=== PATIENT | male | born 1970 | race Caucasian/White ===

== ENCOUNTER 2025-01-03 16:15 | Inpatient (IN) | payer MEDICAID ==
[~2025-01-03] VITALS: Ht 167.6 cm; Wt 86.2 kg
[2025-01-03 16:18] VITALS: O2SAT 97
[2025-01-03] MEDS ORDERED: METF-1149 MT (16:29)
[2025-01-03 16:43] LABS: BG DEOXYHEMOGLOBIN 12.9 % (0.0-5.0)
[2025-01-03] MEDS: SODIUM CHLORIDE 0.9% 1,000 ML IV ONE (17:18)
[2025-01-03 17:20] LABS: HEMATOCRIT. 30.0 % (42.0-52.0); HEMOGLOBIN. 9.6 g/dL (14.0-18.0); MEAN PLATELET VOLUME 9.0 fl (7.4-10.4); PLATELET 244 x1000/uL (130-400); RED BLOOD CELL COUNT 3.34 mill/uL (4.7-6.1); RED CELL DISTRIBUTION WIDTH 13.1 % (11.6-14.6)
[2025-01-03 17:37] LABS: CREATININE 1.3 mg/dL (0.6-1.3); UREA NITROGEN BLOOD 28 mg/dL (9-23)
[2025-01-03 17:39] LABS: ASPARTATE AMINOTRANSFERASE 21 IU/L (<34); BILIRUBIN DIRECT 0.2 mg/dL (<=3.0); BILIRUBIN TOTAL 0.4 mg/dL (0.1-1.0); TROPONIN I HIGH SENSITIVITY 9 ng/L (3.0-53)
[2025-01-03 17:40] LABS: PROTEIN TOTAL 5.4 g/dL (6.0-8.3)
[2025-01-03 17:41] LABS: LYMPHOCYTES % MANUAL 4.0 % (20.0-50.0); MONOCYTES % MANUAL 3.0 % (2.0-8.0); NEUTROPHILS % MANUAL 93.0 % (45.0-75.0); PLATELET ESTIMATE NORMAL
[2025-01-03] MEDS ORDERED: KCL 20MEQ/100ML PREMIX 100 ML IV PRN (18:00)
[2025-01-03] MEDS ORDERED: SODIUM PHOSPHATE 15 MMOL in SODIUM CHLORIDE 0.9% 245 ML IV PRN (18:00)
[2025-01-03] MEDS ORDERED: DEXTROSE 50% WATER 50ML SYRINGE IV PRN (18:00)
[2025-01-03] MEDS ORDERED: POTASSIUM CHLORIDE 40 MEQ in SODIUM CHLORIDE 0.9% 230 ML IV PRN (18:00)
[2025-01-03] MEDS: BLOOD SUGAR DIAGNOSTIC STRIP TEST SCH (18:00)
[2025-01-03] MEDS ORDERED: MAGNESIUM 2 G PREMIX 50 ML IV PRN (18:00)
[2025-01-03] MEDS ORDERED: BLOOD SUGAR DIAGNOSTIC STRIP TEST PRN (18:00)
[2025-01-03] MEDS ORDERED: INSULIN REGULAR (DRIP) 100 UNITS in SODIUM CHLORIDE 0.9% 99 ML IV SCH (18:00)
[2025-01-03] MEDS: INSULIN REGULAR 100U/100ML PMX 100 ML IV SCH (18:42)
[2025-01-03] MEDS: SODIUM CHLORIDE 0.9% 1,000 ML IV SCH (19:51)
[2025-01-03 20:20] LABS: CLARITY URINE CLEAR (CLEAR); COLOR URINE YELLOW (YELLOW); GLUCOSE URINE 3+ (NEGATIVE); KETONES URINE 2+ (NEGATIVE); LEUKOCYTE ESTERASE URINE NEGATIVE (NEGATIVE); NITRITE URINE NEGATIVE (NEGATIVE); OCCULT BLOOD URINE TRACE (NEGATIVE); PH URINE 5.0 (4.5-8.0); PROTEIN URINE 3+ (NEGATIVE); SPECIFIC GRAVITY URINE 1.021 (1.005-1.030); UROBILINOGEN URINE 1.0 E.U./dL (0.2-1.0)
[2025-01-03 20:40] LABS: BACTERIA URINE 1+; SQUAMOUS EPITHELIAL CELL URINE RARE /lpf (RARE/1+); WBC URINE 0-2 /hpf (0-2)
[2025-01-03] MEDS ORDERED: VANCOMYCIN 1G PREMIX 200 ML IV SCH (20:45)
[2025-01-03 21:38] LABS: PHOSPHORUS 3.5 mg/dL (2.5-4.9)
[2025-01-03] MEDS: DEXT 5%/0.9% NACL 1,000 ML IV SCH (23:27)
[2025-01-03] MEDS: PIPERACILLIN/TAZO 3.375G/50ML 50 ML IV SCH (23:38)
[2025-01-04 01:49] LABS: PHOSPHORUS 3.2 mg/dL (2.5-4.9)
[2025-01-04] MEDS: VANCOMYCIN 1G PREMIX 200 ML IV NR (02:07)
[2025-01-04] MEDS ORDERED: VANCOMYCIN 1000MG/250ML 250 ML IV SCH (02:15)
[2025-01-04] MEDS ORDERED: ACETAMINOPHEN 325MG TABLET PO PRN (02:15)
[2025-01-04] MEDS ORDERED: DEXTROSE 50% WATER 50ML SYRINGE IV PRN (02:15)
[2025-01-04] MEDS ORDERED: DIPHENHYDRAMINE 50MG/ML VIAL IV PRN (02:15)
[2025-01-04] MEDS ORDERED: ZOLPIDEM TARTRATE 5MG TABLET PO PRN (02:15)
[2025-01-04 04:00] VITALS: BP 114/95; PULSE 86; RESP 16; TEMP 36.7; O2SAT 99
[2025-01-04 04:23] VITALS: BP 114/95; PULSE 86; RESP 16; TEMP 36.696
[2025-01-04] MEDS: SODIUM CHLORIDE 0.9% 1,000 ML IV SCH (04:37)
[2025-01-04] MEDS: INSULIN GLARGINE 100 UNITS/ML SUBCUT SCH (04:38)
[2025-01-04] MEDS: PIPERACILLIN/TAZO 3.375G/50ML 50 ML IV SCH (06:42)
[2025-01-04] MEDS: BLOOD SUGAR DIAGNOSTIC STRIP TEST SCH (06:42)
[2025-01-04] MEDS: INSULIN LISPRO 100 UNITS/ML SUBCUT SCH (06:44)
[2025-01-04 08:00] VITALS: BP 160/75; PULSE 85; RESP 18; TEMP 36.5; O2SAT 99
[2025-01-04] MEDS: ENOXAPARIN 40MG/0.4ML SYR SUBCUT SCH (09:04)
[2025-01-04] MEDS: VANCOMYCIN 750MG/150ML (BAXTER) IV SCH (11:39)
[2025-01-04 12:00] VITALS: BP 134/68; PULSE 89; RESP 18; TEMP 36.2; O2SAT 98
[2025-01-04] MEDS ORDERED: VANCOMYCIN 750MG/150ML (BAXTER) IV SCH (15:00)
[2025-01-04 20:00] VITALS: BP 144/71; PULSE 85; RESP 18; TEMP 36.7; O2SAT 96
[2025-01-05] VITALS: BP 166/76; PULSE 84; RESP 18; TEMP 36.3; O2SAT 97
[2025-01-05 04:00] VITALS: BP 161/90; PULSE 87; RESP 18; TEMP 36.4; O2SAT 92
[2025-01-05 08:00] VITALS: BP 158/75; PULSE 79; RESP 18; TEMP 36.7; O2SAT 99
[2025-01-05] MEDS ORDERED: LIDOCAINE HCL 1% 10 MG/ML 10ML VIAL ONE (09:05)
[2025-01-05 12:30] VITALS: BP 149/85; PULSE 88; RESP 17; TEMP 36.6; O2SAT 100
[2025-01-05] MEDS ORDERED: IOHEXOL-350 50 ML BOTTLE ONE (14:59)
[2025-01-05 16:00] VITALS: BP 130/70; PULSE 91; RESP 18; TEMP 36.6; O2SAT 98
[2025-01-05 19:15] LABS: BASOPHILS % 0.4 % (0.0-2.0); EOSINOPHILS % 0.5 % (0.0-5.0); HEMATOCRIT. 29.5 % (42.0-52.0); HEMOGLOBIN. 10.0 g/dL (14.0-18.0); LYMPHOCYTES % 7.8 % (20.0-50.0); MEAN PLATELET VOLUME 9.2 fl (7.4-10.4); MONOCYTES % 8.2 % (2.0-8.0); NEUTROPHILS % 83.1 % (40.0-76.0); PLATELET 218 x1000/uL (130-400); RED BLOOD CELL COUNT 3.43 mill/uL (4.7-6.1); RED CELL DISTRIBUTION WIDTH 13.0 % (11.6-14.6)
[2025-01-05 19:31] LABS: CREATININE 0.9 mg/dL (0.6-1.3); UREA NITROGEN BLOOD 16 mg/dL (9-23)
[2025-01-05 20:00] VITALS: BP 135/68; PULSE 90; RESP 18; TEMP 36.7; O2SAT 99
[2025-01-05] MEDS ORDERED: TETANUS AND DIPHTHERIA TOX/PF 0.5ML SYR (ADULT) IM ONE (20:00)
[2025-01-05 21:03] LABS: ERYTHROCYTE SEDIMENTATION RATE 114 mm/hr (0-20)
[2025-01-05] MEDS: ENOXAPARIN 30MG/0.3ML SYR SUBCUT SCH (21:54)
[2025-01-05] MEDS: TETANUS, DIPHTHERIA, PERTUSSIS VAC/PF 0.5ML (>10YR OLD) IM ONE (21:57)
[2025-01-06] VITALS: BP 144/68; PULSE 88; RESP 18; TEMP 36.6; O2SAT 99
[2025-01-06 04:00] VITALS: BP 165/79; PULSE 78; RESP 17; TEMP 36.6; O2SAT 99
[2025-01-06 08:00] VITALS: BP 150/79; PULSE 87; RESP 18; TEMP 37.1; O2SAT 99
[2025-01-06 11:00] LABS: BASOPHILS % 0.3 % (0.0-2.0); EOSINOPHILS % 0.9 % (0.0-5.0); HEMATOCRIT. 25.6 % (42.0-52.0); HEMOGLOBIN. 8.5 g/dL (14.0-18.0); LYMPHOCYTES % 8.5 % (20.0-50.0); MEAN PLATELET VOLUME 8.3 fl (7.4-10.4); MONOCYTES % 8.5 % (2.0-8.0); NEUTROPHILS % 81.8 % (40.0-76.0); PLATELET 176 x1000/uL (130-400); RED BLOOD CELL COUNT 2.94 mill/uL (4.7-6.1); RED CELL DISTRIBUTION WIDTH 13.3 % (11.6-14.6)
[2025-01-06 11:08] LABS: CREATININE 1.0 mg/dL (0.6-1.3)
[2025-01-06 11:09] LABS: UREA NITROGEN BLOOD 16 mg/dL (9-23)
[2025-01-06 12:00] VITALS: BP 140/81; PULSE 81; RESP 18; TEMP 36.6; O2SAT 98
[2025-01-06] MEDS: POTASSIUM CHLORIDE 20MEQ TABLET SR PO NR (12:19)
[2025-01-06] MEDS: VANCOMYCIN 1.25GM/250ML 250 ML IV SCH (13:49)
[2025-01-06 16:00] VITALS: BP 160/78; PULSE 68; RESP 18; TEMP 37.2; O2SAT 97
[2025-01-06] MEDS: POTASSIUM CHLORIDE 20MEQ TABLET SR PO SCH (17:28)
[2025-01-06 20:00] VITALS: BP 154/76; PULSE 96; RESP 18; TEMP 37; O2SAT 97
[2025-01-06] MEDS: HYDROCODONE/ACETAMINOPHEN 5/325MG TABLET PO PRN (21:23)
[2025-01-07] VITALS: BP 143/75; PULSE 97; RESP 18; TEMP 36.6; O2SAT 98
[2025-01-07 04:00] VITALS: BP 161/81; PULSE 87; RESP 18; TEMP 36.6; O2SAT 99
[2025-01-07 07:53] LABS: CREATININE 0.9 mg/dL (0.6-1.3); UREA NITROGEN BLOOD 10 mg/dL (9-23)
[2025-01-07 08:00] VITALS: BP 144/70; PULSE 80; RESP 24; TEMP 36.7; O2SAT 97
[2025-01-07] MEDS ORDERED: BUPIVACAINE HCL/PF 0.5% (5MG/ML) 10ML ONE (08:29)
[2025-01-07] MEDS ORDERED: LIDOCAINE HCL 1% 10 MG/ML 10ML VIAL ONE (08:29)
[2025-01-07 12:00] VITALS: BP 160/81; PULSE 90; RESP 24; TEMP 36.7; O2SAT 98
[2025-01-07 16:00] VITALS: BP 142/73; PULSE 91; RESP 21; TEMP 36.4; O2SAT 96
[2025-01-07 20:00] VITALS: BP 165/77; PULSE 106; RESP 18; TEMP 36.8; O2SAT 97
[2025-01-07] MEDS: CLONIDINE 0.1MG TABLET PO PRN (23:04)
[2025-01-08] VITALS: BP 148/70; PULSE 95; RESP 20; TEMP 36.7; O2SAT 95
[2025-01-08 04:00] VITALS: BP 142/76; PULSE 83; RESP 20; TEMP 36.9; O2SAT 97
[2025-01-08 08:00] VITALS: BP 157/73; PULSE 83; RESP 18; TEMP 36.2; O2SAT 96
[2025-01-08 12:00] VITALS: BP 159/77; PULSE 83; RESP 20; TEMP 36.6; O2SAT 98
[2025-01-08 16:00] VITALS: BP 150/83; PULSE 92; RESP 18; TEMP 37.2; O2SAT 98
[2025-01-08 20:00] VITALS: BP 143/60; PULSE 94; RESP 18; TEMP 36.9; O2SAT 96
[2025-01-08] MEDS: VANCOMYCIN 1GM/200ML PMX (BAXTER) IV SCH (21:00)
[2025-01-09] VITALS (8 sets, daily range): BP systolic 132–158; BP diastolic 59–80; PULSE 82–97; RESP 8–20; TEMP 36.1–37.7; O2SAT 93–98
[2025-01-09 08:50] LABS: BASOPHILS % 1.2 % (0.0-2.0); EOSINOPHILS % 2.2 % (0.0-5.0); HEMATOCRIT. 24.7 % (42.0-52.0); HEMOGLOBIN. 8.3 g/dL (14.0-18.0); LYMPHOCYTES % 13.5 % (20.0-50.0); MEAN PLATELET VOLUME 8.4 fl (7.4-10.4); MONOCYTES % 9.9 % (2.0-8.0); NEUTROPHILS % 73.2 % (40.0-76.0); PLATELET 208 x1000/uL (130-400); RED BLOOD CELL COUNT 2.82 mill/uL (4.7-6.1); RED CELL DISTRIBUTION WIDTH 13.8 % (11.6-14.6)
[2025-01-09 09:38] LABS: UREA NITROGEN BLOOD 17.0 mg/dL (9-23)
[2025-01-09 09:52] LABS: CREATININE 1.5 mg/dL (0.6-1.3)
[2025-01-10] VITALS (9 sets, daily range): BP systolic 135–160; BP diastolic 67–79; PULSE 77–100; RESP 18–20; TEMP 36.6–37.00296; O2SAT 95–98
[2025-01-10 06:12] LABS: BASOPHILS % 1.2 % (0.0-2.0); EOSINOPHILS % 2.7 % (0.0-5.0); HEMATOCRIT. 26.6 % (42.0-52.0); HEMOGLOBIN. 9.0 g/dL (14.0-18.0); LYMPHOCYTES % 12.7 % (20.0-50.0); MEAN PLATELET VOLUME 7.6 fl (7.4-10.4); MONOCYTES % 9.6 % (2.0-8.0); NEUTROPHILS % 73.8 % (40.0-76.0); PLATELET 239 x1000/uL (130-400); RED BLOOD CELL COUNT 3.04 mill/uL (4.7-6.1); RED CELL DISTRIBUTION WIDTH 14.8 % (11.6-14.6)
[2025-01-10 06:22] LABS: CREATININE 1.5 mg/dL (0.6-1.3); UREA NITROGEN BLOOD 16.0 mg/dL (9-23)
[2025-01-10 06:55] LABS: INR 1.0
[2025-01-10] MEDS: VANCOMYCIN 1GM PMX (XELLIA) 200 ML IV SCH (09:00)
[2025-01-11] VITALS: BP 172/77; PULSE 82; RESP 19; TEMP 36.6; O2SAT 94
[2025-01-11 04:00] VITALS: BP 178/75; PULSE 85; RESP 18; TEMP 36.8; O2SAT 95
[2025-01-11 05:17] LABS: CREATININE 0.8 mg/dL (0.6-1.3); UREA NITROGEN BLOOD 15 mg/dL (9-23)
[2025-01-11 08:00] VITALS: BP 167/80; PULSE 80; RESP 18; TEMP 37.1; O2SAT 98
[2025-01-11 12:00] VITALS: BP 149/68; PULSE 77; RESP 18; TEMP 36; O2SAT 98
[2025-01-11 16:00] VITALS: BP 127/76; PULSE 86; RESP 18; TEMP 36.8; O2SAT 98
[2025-01-11 20:00] VITALS: BP 168/76; PULSE 92; RESP 18; TEMP 37; O2SAT 95
[2025-01-12] VITALS: BP 167/76; PULSE 88; RESP 18; TEMP 36.4; O2SAT 95
[2025-01-12] MEDS: HYDRALAZINE 20MG/ML VIAL IV NR (05:42)
[2025-01-12] MEDS ORDERED: VANCOMYCIN HCL 1GM VIAL ONE ×2 (07:02→09:48)
[2025-01-12] MEDS ORDERED: POLYMYXIN B SULFATE 500000 UNITS/VIAL ONE ×2 (07:02→09:47)
[2025-01-12] MEDS ORDERED: LIDOCAINE HCL/EPINEPHRINE 1%-EPI 1:100,000 20ML VIAL ONE (07:03)
[2025-01-12] MEDS ORDERED: ACETAMINOPHEN 1000MG/100ML 100 ML IV ONE (07:03)
[2025-01-12] MEDS ORDERED: FAMOTIDINE 20MG/2ML VIAL IV ONE (07:03)
[2025-01-12] MEDS ORDERED: BUPIVACAINE HCL/PF 0.5% (5MG/ML) 10ML ONE ×2 (07:03→09:48)
[2025-01-12 08:00] VITALS: BP 161/69; PULSE 83; RESP 20; TEMP 37.2; O2SAT 96
[2025-01-12 08:10] VITALS: BP 163/68; PULSE 83; RESP 17; TEMP 35.6; O2SAT 96
[2025-01-12 08:52] LABS: PLATELET 227 x1000/uL (130-400); RED BLOOD CELL COUNT 2.94 mill/uL (4.7-6.1); RED CELL DISTRIBUTION WIDTH 14.9 % (11.6-14.6)
[2025-01-12 08:55] LABS: UREA NITROGEN BLOOD 15.0 mg/dL (9-23)
[2025-01-12 09:06] LABS: CREATININE 1.6 mg/dL (0.6-1.3)
[2025-01-12] MEDS ORDERED: PROPOFOL 200MG/20ML VIAL IV ONE (09:37)
[2025-01-12] MEDS ORDERED: FENTANYL CITRATE/PF 50MCG/ML 2ML VIAL ONE (09:37)
[2025-01-12] MEDS ORDERED: DEXAMETHASONE 4MG/ML 1ML VIAL ONE (09:37)
[2025-01-12] MEDS ORDERED: ONDANSETRON HCL 4MG/2ML INJ ONE (09:37)
[2025-01-12] MEDS ORDERED: MIDAZOLAM HCL 2 MG/2 ML VIAL ONE (09:37)
[2025-01-12] MEDS ORDERED: LIDOCAINE HCL 1% 20ML VIAL ONE (09:48)
[2025-01-12] MEDS ORDERED: HYDROMORPHONE HCL/PF 2MG/ML INJ ONE (10:27)
[2025-01-12] MEDS ORDERED: ONDANSETRON HCL 4MG/2ML INJ IV PRN (12:00)
[2025-01-12] MEDS ORDERED: HYDROMORPHONE HCL/PF 1MG/ML INJ IV PRN (12:00)
[2025-01-12] MEDS ORDERED: FAMOTIDINE 20MG/2ML VIAL IV PRN (12:00)
[2025-01-12] MEDS ORDERED: HYDRALAZINE 20MG/ML VIAL IV PRN ×2 (12:00)
[2025-01-12] MEDS ORDERED: MEPERIDINE HCL/PF 25MG/ML CPJ IV PRN (12:00)
[2025-01-12] MEDS ORDERED: LABETALOL 5MG/ML 4ML INJ IV PRN (12:00)
[2025-01-12] MEDS ORDERED: ACETAMINOPHEN 1,000MG/100ML PREMIX IV PRN (12:00)
[2025-01-12 13:40] VITALS: BP 142/75; PULSE 84; RESP 18; TEMP 36.5; O2SAT 94
[2025-01-12] MEDS: ACETAMINOPHEN 325MG TABLET PO PRN (15:41)
[2025-01-12 16:00] VITALS: BP 119/74; PULSE 88; RESP 18; TEMP 36.3; O2SAT 99
[2025-01-12 20:00] VITALS: BP 136/68; PULSE 136; RESP 18; TEMP 36
[2025-01-12] MEDS ORDERED: NALOXONE HCL 0.4MG/ML VIAL IV PRN (20:00)
[2025-01-12] MEDS: HYDROCODONE/ACETAMINOPHEN 5/325MG TABLET PO PRN (20:29)
[2025-01-12] MEDS: VANCOMYCIN 1.25GM/250ML IV SCH (21:17)
[2025-01-13] VITALS: BP 135/78; PULSE 86; RESP 18; TEMP 36.2; O2SAT 95
[2025-01-13 04:00] VITALS: BP 145/78; PULSE 85; RESP 18; TEMP 36.7; O2SAT 94
[2025-01-13 08:00] VITALS: BP 147/69; PULSE 85; RESP 20; TEMP 35.6; O2SAT 95
[2025-01-13] MEDS: SODIUM CHLORIDE 0.9% 500 ML IV ONE (09:49)
[2025-01-13 12:00] VITALS: BP 144/65; PULSE 82; RESP 19; TEMP 36.5; O2SAT 98
[2025-01-13 16:00] VITALS: BP 119/68; PULSE 84; RESP 19; TEMP 36.6; O2SAT 97
[2025-01-13 20:00] VITALS: BP 144/70; PULSE 90; RESP 20; TEMP 36.4; O2SAT 97
[2025-01-14] VITALS (8 sets, daily range): BP systolic 125–179; BP diastolic 45–82; PULSE 78–95; RESP 17–20; TEMP 36.3–36.9; O2SAT 96–99
[2025-01-14 08:31] LABS: BASOPHILS % 2.0 % (0.0-2.0); EOSINOPHILS % 3.3 % (0.0-5.0); LYMPHOCYTES % 14.3 % (20.0-50.0); MEAN PLATELET VOLUME 7.1 fl (7.4-10.4); MONOCYTES % 10.2 % (2.0-8.0); NEUTROPHILS % 70.2 % (40.0-76.0); PLATELET 226 x1000/uL (130-400); RED BLOOD CELL COUNT 1.92 mill/uL (4.7-6.1); RED CELL DISTRIBUTION WIDTH 15.7 % (11.6-14.6)
[2025-01-14 08:37] LABS: CREATININE 1.8 mg/dL (0.6-1.3); UREA NITROGEN BLOOD 24.0 mg/dL (9-23)
[2025-01-14 08:48] LABS: HEMATOCRIT. 16.5 % (42.0-52.0); HEMOGLOBIN. 5.5 g/dL (14.0-18.0)
[2025-01-14] MEDS: POTASSIUM CHLORIDE 20MEQ TABLET SR PO NR (09:29)
[2025-01-14 13:08] LABS: CLARITY URINE CLOUDY (CLEAR); COLOR URINE YELLOW (YELLOW); GLUCOSE URINE TRACE (NEGATIVE); KETONES URINE NEGATIVE (NEGATIVE); LEUKOCYTE ESTERASE URINE NEGATIVE (NEGATIVE); NITRITE URINE NEGATIVE (NEGATIVE); OCCULT BLOOD URINE 1+ (NEGATIVE); PH URINE 5.5 (4.5-8.0); PROTEIN URINE 2+ (NEGATIVE); SPECIFIC GRAVITY URINE 1.014 (1.005-1.030); UROBILINOGEN URINE 0.2 E.U./dL (0.2-1.0)
[2025-01-14 13:58] LABS: BACTERIA URINE TRACE; RBC URINE 0-2 /hpf (0-2); SQUAMOUS EPITHELIAL CELL URINE RARE /lpf (RARE/1+); WBC URINE 0-2 /hpf (0-2); YEAST URINE 1+
[2025-01-14 14:01] LABS: URIC ACID CRYSTALS URINE 2+ /lpf
[2025-01-14] MEDS: AMOXICILLIN/POTASSIUM CLAVULANATE 500/125MG TAB PO SCH (20:23)
[2025-01-14] MEDS: ONDANSETRON HCL 4MG/2ML INJ IV PRN (20:23)
[2025-01-15] VITALS (10 sets, daily range): BP systolic 138–176; BP diastolic 68–88; PULSE 10–92; RESP 18–20; TEMP 35.8–37.1; O2SAT 95–99
[2025-01-15 06:04] LABS: CREATININE 1.7 mg/dL (0.6-1.3)
[2025-01-15 06:05] LABS: UREA NITROGEN BLOOD 23.0 mg/dL (9-23)
[2025-01-15 06:39] LABS: BASOPHILS % 1.5 % (0.0-2.0); EOSINOPHILS % 0.7 % (0.0-5.0); LYMPHOCYTES % 12.3 % (20.0-50.0); MEAN PLATELET VOLUME 7.4 fl (7.4-10.4); MONOCYTES % 7.1 % (2.0-8.0); NEUTROPHILS % 78.4 % (40.0-76.0); PLATELET 232 x1000/uL (130-400); RED BLOOD CELL COUNT 2.39 mill/uL (4.7-6.1); RED CELL DISTRIBUTION WIDTH 15.8 % (11.6-14.6)
[2025-01-15 07:39] LABS: HEMATOCRIT. 20.9 % (42.0-52.0); HEMOGLOBIN. 7.0 g/dL (14.0-18.0)
[2025-01-15] MEDS: PANTOPRAZOLE SODIUM 40 MG/VIAL IV SCH (08:50)
[2025-01-15] MEDS: CALCIUM 1250MG TABLET (500MG ELEMENTAL CALCIUM) PO SCH (08:54)
[2025-01-15] MEDS ORDERED: FLUCONAZOLE 100MG TABLET PO SCH (09:30)
[2025-01-15] MEDS ORDERED: FLUCONAZOLE 50MG TABLET PO SCH (09:40)
[2025-01-15] MEDS: HYDRALAZINE 20MG/ML VIAL IV PRN (10:19)
[2025-01-15] MEDS: FLUCONAZOLE 150MG TABLET PO SCH (11:09)
[2025-01-16] VITALS: BP 149/77; PULSE 80; RESP 18; TEMP 36.7; O2SAT 97
[2025-01-16 04:00] VITALS: BP 168/89; PULSE 82; RESP 20; TEMP 36.7; O2SAT 99
[2025-01-16 08:00] VITALS: BP 167/74; PULSE 75; RESP 18; TEMP 37; O2SAT 93
[2025-01-16 08:59] LABS: CREATININE 1.5 mg/dL (0.6-1.3); UREA NITROGEN BLOOD 19 mg/dL (9-23)
[2025-01-16 09:00] LABS: PROTEIN TOTAL 5.2 g/dL (6.0-8.3)
[2025-01-16 09:01] LABS: ASPARTATE AMINOTRANSFERASE 27 IU/L (<34); BASOPHILS % 1.8 % (0.0-2.0); BILIRUBIN DIRECT 0.3 mg/dL (<=3.0); EOSINOPHILS % 5.4 % (0.0-5.0); HEMATOCRIT. 27.7 % (42.0-52.0); HEMOGLOBIN. 9.4 g/dL (14.0-18.0); LYMPHOCYTES % 21.4 % (20.0-50.0); MEAN PLATELET VOLUME 7.2 fl (7.4-10.4); MONOCYTES % 9.8 % (2.0-8.0); NEUTROPHILS % 61.6 % (40.0-76.0); PHOSPHORUS 2.6 mg/dL (2.5-4.9); PLATELET 278 x1000/uL (130-400); RED BLOOD CELL COUNT 3.20 mill/uL (4.7-6.1); RED CELL DISTRIBUTION WIDTH 16.9 % (11.6-14.6)
[2025-01-16 09:02] LABS: BILIRUBIN TOTAL 0.9 mg/dL (0.1-1.0)
[2025-01-16] MEDS: POTASSIUM CHLORIDE 20MEQ TABLET SR PO SCH (10:16)
[2025-01-16] MEDS: MAGNESIUM 2 G PREMIX 50 ML IV SCH (10:19)
[2025-01-16 12:00] VITALS: BP 159/73; PULSE 81; RESP 18; TEMP 37.1; O2SAT 95
[2025-01-16] MEDS: MAGNESIUM OXIDE 400MG TABLET PO SCH (12:15)
[2025-01-16] MEDS: AMLODIPINE 2.5MG TABLET PO SCH ×2 (12:15→21:05)
[2025-01-16] MEDS: ENOXAPARIN 30MG/0.3ML SYR SUBCUT SCH (15:46)
[2025-01-16 16:00] VITALS: BP 144/69; PULSE 77; RESP 18; TEMP 37.1; O2SAT 94
[2025-01-16 20:00] VITALS: BP 131/68; PULSE 85; RESP 18; TEMP 36.3; O2SAT 97
[2025-01-17] VITALS: BP 133/64; PULSE 83; RESP 20; TEMP 36.8; O2SAT 97
[2025-01-17 04:00] VITALS: BP 151/75; PULSE 77; RESP 19; TEMP 36; O2SAT 20
[2025-01-17 06:44] LABS: BASOPHILS % 2.7 % (0.0-2.0); EOSINOPHILS % 5.7 % (0.0-5.0); HEMATOCRIT. 25.5 % (42.0-52.0); HEMOGLOBIN. 8.5 g/dL (14.0-18.0); LYMPHOCYTES % 27.9 % (20.0-50.0); MEAN PLATELET VOLUME 7.1 fl (7.4-10.4); MONOCYTES % 12.8 % (2.0-8.0); NEUTROPHILS % 50.9 % (40.0-76.0); PLATELET 256 x1000/uL (130-400); RED BLOOD CELL COUNT 2.90 mill/uL (4.7-6.1); RED CELL DISTRIBUTION WIDTH 17.4 % (11.6-14.6)
[2025-01-17 07:12] LABS: CREATININE 1.5 mg/dL (0.6-1.3)
[2025-01-17 07:13] LABS: UREA NITROGEN BLOOD 16 mg/dL (9-23)
[2025-01-17 07:15] LABS: PHOSPHORUS 3.2 mg/dL (2.5-4.9)
[2025-01-17 08:27] VITALS: BP 164/82; PULSE 82; RESP 16; TEMP 36.6; O2SAT 97
[2025-01-17 12:00] VITALS: BP 133/7; PULSE 86; RESP 18; TEMP 36; O2SAT 98
[2025-01-17 16:00] VITALS: BP 150/70; PULSE 84; RESP 18; TEMP 36.5; O2SAT 98
[2025-01-17 20:00] VITALS: BP 154/75; PULSE 98; RESP 18; TEMP 36.6; O2SAT 98
[2025-01-18] VITALS (13 sets, daily range): BP systolic 132–182; BP diastolic 67–99; PULSE 84–114; RESP 18–20; TEMP 36.4–37.1; O2SAT 95–100
[2025-01-18 06:42] LABS: BASOPHILS % 1.7 % (0.0-2.0); EOSINOPHILS % 2.5 % (0.0-5.0); HEMATOCRIT. 26.8 % (42.0-52.0); HEMOGLOBIN. 9.0 g/dL (14.0-18.0); LYMPHOCYTES % 11.6 % (20.0-50.0); MEAN PLATELET VOLUME 7.3 fl (7.4-10.4); MONOCYTES % 9.9 % (2.0-8.0); NEUTROPHILS % 74.3 % (40.0-76.0); PLATELET 270 x1000/uL (130-400); RED BLOOD CELL COUNT 3.06 mill/uL (4.7-6.1); RED CELL DISTRIBUTION WIDTH 17.8 % (11.6-14.6)
[2025-01-18 06:44] LABS: CREATININE 1.5 mg/dL (0.6-1.3)
[2025-01-18 06:45] LABS: UREA NITROGEN BLOOD 17 mg/dL (9-23)
[2025-01-18 06:47] LABS: PHOSPHORUS 3.1 mg/dL (2.5-4.9)
[2025-01-18] MEDS ORDERED: NALOXONE HCL 0.4MG/ML VIAL IV PRN (10:15)
[2025-01-18] MEDS: SODIUM CHLORIDE 0.9% 1,000 ML IV SCH (10:41)
[2025-01-18] MEDS: CLONIDINE 0.1MG TABLET PO SCH (11:12)
[2025-01-18] MEDS: MAGNESIUM 4 G PREMIX 100 ML IV SCH (14:37)
[2025-01-18] MEDS: AMLODIPINE 5MG TABLET PO SCH (21:19)
[2025-01-19] VITALS: BP 156/70; PULSE 86; RESP 18; TEMP 36.6; O2SAT 99
[2025-01-19 04:00] VITALS: BP 157/74; PULSE 87; RESP 17; TEMP 36.4; O2SAT 99
[2025-01-19 08:00] VITALS: BP 164/78; PULSE 88; RESP 18; TEMP 36.8; O2SAT 96
[2025-01-19 08:21] LABS: BASOPHILS % 0.4 % (0.0-2.0); EOSINOPHILS % 0.8 % (0.0-5.0); HEMATOCRIT. 29.7 % (42.0-52.0); HEMOGLOBIN. 9.6 g/dL (14.0-18.0); LYMPHOCYTES % 10.0 % (20.0-50.0); MEAN PLATELET VOLUME 7.4 fl (7.4-10.4); MONOCYTES % 11.3 % (2.0-8.0); NEUTROPHILS % 77.5 % (40.0-76.0); PLATELET 277 x1000/uL (130-400); RED BLOOD CELL COUNT 3.24 mill/uL (4.7-6.1); RED CELL DISTRIBUTION WIDTH 18.8 % (11.6-14.6)
[2025-01-19 08:23] LABS: CREATININE 1.4 mg/dL (0.6-1.3); UREA NITROGEN BLOOD 9 mg/dL (9-23)
[2025-01-19 08:25] LABS: PHOSPHORUS 3.4 mg/dL (2.5-4.9)
[2025-01-19 12:00] VITALS: BP 156/75; PULSE 90; RESP 18; TEMP 36.8; O2SAT 96
[2025-01-19 20:00] VITALS: BP 144/67; PULSE 88; RESP 18; TEMP 36.5; O2SAT 96
[2025-01-20] VITALS: BP 138/64; PULSE 84; RESP 18; TEMP 36.4; O2SAT 97
[2025-01-20 04:00] VITALS: BP 149/73; PULSE 76; RESP 18; TEMP 36.6; O2SAT 97
[2025-01-20 08:00] VITALS: BP 151/68; PULSE 82; RESP 18; TEMP 36.8; O2SAT 98
[2025-01-20 08:03] LABS: BASOPHILS % 1.3 % (0.0-2.0); EOSINOPHILS % 5.4 % (0.0-5.0); HEMATOCRIT. 26.5 % (42.0-52.0); HEMOGLOBIN. 9.0 g/dL (14.0-18.0); LYMPHOCYTES % 16.9 % (20.0-50.0); MEAN PLATELET VOLUME 7.2 fl (7.4-10.4); MONOCYTES % 13.4 % (2.0-8.0); NEUTROPHILS % 63.0 % (40.0-76.0); PLATELET 281 x1000/uL (130-400); RED BLOOD CELL COUNT 2.99 mill/uL (4.7-6.1); RED CELL DISTRIBUTION WIDTH 17.8 % (11.6-14.6)
[2025-01-20 08:14] LABS: CREATININE 1.4 mg/dL (0.6-1.3); UREA NITROGEN BLOOD 13 mg/dL (9-23)
[2025-01-20 08:16] LABS: ASPARTATE AMINOTRANSFERASE 14 IU/L (<34)
[2025-01-20 08:17] LABS: BILIRUBIN DIRECT 0.3 mg/dL (<=3.0); BILIRUBIN TOTAL 0.8 mg/dL (0.1-1.0); PHOSPHORUS 2.8 mg/dL (2.5-4.9); PROTEIN TOTAL 5.3 g/dL (6.0-8.3)
[2025-01-20 12:00] VITALS: BP 121/73; PULSE 86; RESP 18; TEMP 36.6; O2SAT 95
[2025-01-20] MEDS: POTASSIUM CHLORIDE 20MEQ TABLET SR PO NR (12:18)
[2025-01-20] MEDS: SPIRONOLACTONE 25MG TABLET PO SCH (12:19)
[2025-01-20 16:00] VITALS: BP 146/75; PULSE 88; RESP 18; TEMP 36.7; O2SAT 96
[2025-01-20 20:00] VITALS: BP 137/68; PULSE 86; RESP 18; TEMP 36.5; O2SAT 97
[2025-01-21] VITALS: BP 139/67; PULSE 91; RESP 18; TEMP 36.1; O2SAT 98
[2025-01-21 04:00] VITALS: BP 156/71; PULSE 96; RESP 18; TEMP 36.7; O2SAT 98
[2025-01-21 08:00] VITALS: BP 147/73; PULSE 84; RESP 18; TEMP 36; O2SAT 98
[2025-01-21 08:12] LABS: BASOPHILS % 1.9 % (0.0-2.0); EOSINOPHILS % 5.5 % (0.0-5.0); HEMATOCRIT. 25.1 % (42.0-52.0); HEMOGLOBIN. 8.4 g/dL (14.0-18.0); LYMPHOCYTES % 22.7 % (20.0-50.0); MEAN PLATELET VOLUME 7.2 fl (7.4-10.4); MONOCYTES % 13.5 % (2.0-8.0); NEUTROPHILS % 56.4 % (40.0-76.0); PLATELET 270 x1000/uL (130-400); RED BLOOD CELL COUNT 2.85 mill/uL (4.7-6.1); RED CELL DISTRIBUTION WIDTH 17.4 % (11.6-14.6)
[2025-01-21 08:29] LABS: CREATININE 1.4 mg/dL (0.6-1.3); UREA NITROGEN BLOOD 12 mg/dL (9-23)
[2025-01-21 08:31] LABS: PHOSPHORUS 2.7 mg/dL (2.5-4.9)
[2025-01-21 12:13] VITALS: BP 145/72; PULSE 94; RESP 18; TEMP 36.8; O2SAT 98
[2025-01-21] MEDS: HYDROCODONE/ACETAMINOPHEN 5/325MG TABLET PO PRN (15:15)
[2025-01-21 16:00] VITALS: BP 136/70; PULSE 90; RESP 18; TEMP 36.4; O2SAT 98
[2025-01-21 20:00] VITALS: BP 139/73; PULSE 92; RESP 18; TEMP 36.6; O2SAT 97
[2025-01-21] MEDS: SPIRONOLACTONE 25MG TABLET PO SCH (22:01)
[2025-01-22] VITALS: BP 164/79; PULSE 93; RESP 19; TEMP 36.8; O2SAT 96
[2025-01-22 06:00] VITALS: BP 164/87; PULSE 94; RESP 18; TEMP 36.4; O2SAT 95
[2025-01-22 08:00] VITALS: BP 145/73; PULSE 84; RESP 19; TEMP 36.8; O2SAT 97
[2025-01-22 09:00] LABS: CREATININE 1.4 mg/dL (0.6-1.3); UREA NITROGEN BLOOD 11 mg/dL (9-23)
[2025-01-22] MEDS: MAGNESIUM 2 G PREMIX 50 ML IV NR (10:00)
[2025-01-22 12:00] VITALS: BP 143/76; PULSE 90; RESP 18; TEMP 36.6; O2SAT 97
[2025-01-22 16:00] VITALS: BP 139/75; PULSE 87; RESP 19; TEMP 36.7; O2SAT 98
[2025-01-22] MEDS ORDERED: HYDRALAZINE 10 MG in SODIUM CHLORIDE 0.9% 49.5 ML IV PRN (16:15)
[2025-01-22 20:00] VITALS: BP 143/71; PULSE 89; RESP 18; TEMP 37.1; O2SAT 98
[2025-01-23 08:00] VITALS: BP 136/70; PULSE 84; RESP 19; TEMP 36.5; O2SAT 97
[2025-01-23 12:00] VITALS: BP 144/71; PULSE 93; RESP 18; TEMP 36.4; O2SAT 98
[2025-01-23 16:00] VITALS: BP 131/69; PULSE 82; RESP 19; TEMP 36.7; O2SAT 97
[2025-01-23 20:00] VITALS: BP 132/69; PULSE 90; RESP 20; TEMP 36.7; O2SAT 95
[2025-01-24] VITALS: BP 128/62; PULSE 90; RESP 20; TEMP 36.8; O2SAT 97
[2025-01-24 04:00] VITALS: BP 158/78; PULSE 92; RESP 20; TEMP 36.4; O2SAT 95
[2025-01-24 08:00] VITALS: BP 148/73; PULSE 88; RESP 18; TEMP 36.6; O2SAT 98
[2025-01-24 12:00] VITALS: BP 137/64; PULSE 82; RESP 18; TEMP 36.5; O2SAT 98
[2025-01-24] MEDS: LOPERAMIDE HCL 2MG CAPSULE PO PRN (14:39)
[2025-01-24 16:00] VITALS: BP 137/77; PULSE 84; RESP 18; TEMP 36.4; O2SAT 98
[2025-01-24 20:00] VITALS: BP 156/71; PULSE 93; RESP 17; TEMP 36.7; O2SAT 97
[2025-01-25] VITALS: BP 139/70; PULSE 76; RESP 19; TEMP 37.4; O2SAT 100
[2025-01-25 04:00] VITALS: BP 119/70; RESP 20; TEMP 36.7; O2SAT 97
[2025-01-25 08:00] VITALS: BP 116/66; PULSE 88; RESP 15; TEMP 36.1; O2SAT 100
[2025-01-25] MEDS: SPIRONOLACTONE 25MG TABLET PO SCH (09:31)
[2025-01-25 12:00] VITALS: BP 100/67; PULSE 89; RESP 17; TEMP 36.4; O2SAT 99
[2025-01-25 12:17] LABS: BASOPHILS % 1.3 % (0.0-2.0); EOSINOPHILS % 2.4 % (0.0-5.0); HEMATOCRIT. 27.1 % (42.0-52.0); HEMOGLOBIN. 8.8 g/dL (14.0-18.0); LYMPHOCYTES % 13.5 % (20.0-50.0); MEAN PLATELET VOLUME 7.7 fl (7.4-10.4); MONOCYTES % 9.9 % (2.0-8.0); NEUTROPHILS % 72.9 % (40.0-76.0); PLATELET 325 x1000/uL (130-400); RED BLOOD CELL COUNT 3.08 mill/uL (4.7-6.1); RED CELL DISTRIBUTION WIDTH 16.6 % (11.6-14.6)
[2025-01-25 12:41] LABS: CREATININE 1.3 mg/dL (0.6-1.3)
[2025-01-25 12:42] LABS: UREA NITROGEN BLOOD 7 mg/dL (9-23)
[2025-01-25 12:44] LABS: PHOSPHORUS 3.2 mg/dL (2.5-4.9)
[2025-01-25 16:00] VITALS: BP 146/78; PULSE 92; RESP 18; TEMP 36.4; O2SAT 100
[2025-01-25 20:00] VITALS: BP 143/74; PULSE 85; RESP 18; TEMP 36.4; O2SAT 95
[2025-01-26 04:00] VITALS: BP 126/75; PULSE 88; RESP 19; TEMP 36.7; O2SAT 96
[2025-01-26 08:00] VITALS: BP 119/69; PULSE 90; RESP 19; TEMP 36.4; O2SAT 98
[2025-01-26 12:00] VITALS: BP 120/64; PULSE 88; RESP 18; TEMP 36.5; O2SAT 99
[2025-01-26 16:00] VITALS: BP 141/77; PULSE 90; RESP 19; TEMP 35.8; O2SAT 96
[2025-01-26 20:00] VITALS: BP 136/70; PULSE 96; RESP 19; TEMP 36.4; O2SAT 99
[2025-01-27] VITALS: BP 142/75; PULSE 90; RESP 18; TEMP 36.4; O2SAT 94
[2025-01-27 04:00] VITALS: BP 135/74; PULSE 89; RESP 16; TEMP 36.4; O2SAT 96
[2025-01-27 08:00] VITALS: BP 141/74; PULSE 87; RESP 18; TEMP 35.7; O2SAT 98
[2025-01-27 12:00] VITALS: BP 136/70; PULSE 85; RESP 18; TEMP 36.7; O2SAT 98
[2025-01-27 16:00] VITALS: BP 128/64; PULSE 93; RESP 19; TEMP 36.6; O2SAT 97
[2025-01-27 20:00] VITALS: BP 135/69; PULSE 87; RESP 16; TEMP 35.8; O2SAT 96
[2025-01-28] VITALS: BP 133/68; PULSE 84; RESP 18; TEMP 36.1; O2SAT 96
[2025-01-28 04:00] VITALS: BP 144/73; PULSE 84; RESP 18; TEMP 36; O2SAT 97
[2025-01-28 08:00] VITALS: BP 128/64; PULSE 89; RESP 18; TEMP 36.2; O2SAT 100
[2025-01-28 12:00] VITALS: BP 129/70; PULSE 78; RESP 18; TEMP 36.3; O2SAT 100
[2025-01-28 16:00] VITALS: BP 128/70; PULSE 80; RESP 18; TEMP 36.4; O2SAT 99
[2025-01-28 20:00] VITALS: BP 140/70; PULSE 80; RESP 20; TEMP 36.2; O2SAT 95
[2025-01-29] VITALS: BP 124/68; PULSE 86; RESP 18; TEMP 36.3; O2SAT 98
[2025-01-29 04:00] VITALS: BP 143/71; PULSE 82; RESP 18; TEMP 36.2; O2SAT 97
[2025-01-29 08:00] VITALS: BP 125/61; PULSE 85; RESP 18; TEMP 35.9; O2SAT 99
[2025-01-29 12:00] VITALS: BP 111/67; PULSE 86; RESP 17; TEMP 36.7; O2SAT 98
[2025-01-29] MEDS ORDERED: LANTUSUD SUBCUT (12:40)
[2025-01-29] MEDS ORDERED: AMLO5TAB88 PO (12:40)
[2025-01-29] MEDS ORDERED: SPIR25TA PO (12:40)
[2025-01-29 16:00] VITALS: BP 114/62; PULSE 89; RESP 18; TEMP 37.9; O2SAT 97
[2025-01-29 20:00] VITALS: BP 122/64; PULSE 86; RESP 18; TEMP 36.9; O2SAT 97
[2025-01-29 20:44] LABS: BASOPHILS % 1.3 % (0.0-2.0); EOSINOPHILS % 3.0 % (0.0-5.0); HEMATOCRIT. 27.1 % (42.0-52.0); HEMOGLOBIN. 8.9 g/dL (14.0-18.0); LYMPHOCYTES % 17.9 % (20.0-50.0); MEAN PLATELET VOLUME 7.4 fl (7.4-10.4); MONOCYTES % 7.6 % (2.0-8.0); NEUTROPHILS % 70.2 % (40.0-76.0); PLATELET 332 x1000/uL (130-400); RED BLOOD CELL COUNT 3.11 mill/uL (4.7-6.1); RED CELL DISTRIBUTION WIDTH 16.7 % (11.6-14.6)
[2025-01-29 20:58] LABS: UREA NITROGEN BLOOD 17 mg/dL (9-23)
[2025-01-29 21:00] LABS: PHOSPHORUS 3.1 mg/dL (2.5-4.9)
[2025-01-29 21:07] LABS: CREATININE 1.7 mg/dL (0.6-1.3)
[2025-01-29] MEDS: PANTOPRAZOLE 40MG DR TABLET PO SCH (21:35)
[2025-01-30] VITALS: BP 124/64; PULSE 85; RESP 18; TEMP 35.9; O2SAT 100
[2025-01-30 03:44] VITALS: BP 123/67; PULSE 80; RESP 18; TEMP 97.6
[2025-01-30 04:00] VITALS: BP 125/67; PULSE 76; RESP 18; TEMP 36.4; O2SAT 97
== END 2025-01-30 06:13 | DRG 710 ==
LOC: ER 16:15 → 8WST 18:08 → EDBEDREQSVC 18:17 → EDBEDREQTM 18:17 → EDBEDREQ 18:17 → CANRESERV 01-04 00:58 → ENRESERV 01-04 00:58 → 6EST 01-21 12:28 → 7EST 01-25 04:38
PROVIDERS: ADMIT Internal Medicine; ATTEND Internal Medicine
PROC: 05HY33Z Insertion of Infusion Device into Upper Vein, Percutaneous Approach (ICD-10-PCS; 2025-01-05)
PROC: B54MZZA Ultrasonography of Right Upper Extremity Veins, Guidance (ICD-10-PCS; 2025-01-05)
PROC: 30233N1 Transfusion of Nonautologous Red Blood Cells into Peripheral Vein, Percutaneous Approach (ICD-10-PCS; 2025-01-09)
PROC: 0Y6H0Z1 Detachment at Right Lower Leg, High, Open Approach (ICD-10-PCS; principal; 2025-01-12)
DX: A41.81 Sepsis due to Enterococcus (principal); E11.10 Type 2 diabetes mellitus with ketoacidosis without coma; A48.0 Gas gangrene; G54.6 Phantom limb syndrome with pain; N17.9 Acute kidney failure, unspecified; L97.428 Non-pressure chronic ulcer of left heel and midfoot with other specified severity; E11.42 Type 2 diabetes mellitus with diabetic polyneuropathy; D64.9 Anemia, unspecified; E11.52 Type 2 diabetes mellitus with diabetic peripheral angiopathy with gangrene; R65.20 Severe sepsis without septic shock; N39.0 Urinary tract infection, site not specified; M86.8X7 Other osteomyelitis, ankle and foot; I10 Essential (primary) hypertension; E66.09 Other obesity due to excess calories; E11.621 Type 2 diabetes mellitus with foot ulcer; E11.69 Type 2 diabetes mellitus with other specified complication; E86.0 Dehydration; G47.00 Insomnia, unspecified; E78.5 Hyperlipidemia, unspecified; E83.42 Hypomagnesemia; E87.6 Hypokalemia; G47.33 Obstructive sleep apnea (adult) (pediatric); Z79.84 Long term (current) use of oral hypoglycemic drugs; Z87.891 Personal history of nicotine dependence; Z79.899 Other long term (current) drug therapy; Z68.37 Body mass index [BMI] 37.0-37.9, adult
CPT/HCPCS: 36415; 36573; 71045; 73630; 73650; 74018; 75635; 76770; 80048; 80051; 80076; 80202; 81003; 82010; 82270; 82330; 82375; 82550; 82803; 82962; 83036; 83605; 83735; 83880; 84100; 84132; 84145; 84443; 84484; 85014; 85018; 85025; 85027; 85651; 86850; 86900; 86920; 87077; 87186; 88307; 88311; 90714; 90715; 90935; 93005; 93306; 93922; 93923; 96360; 97110; 97116; 97162; 97166; 97530; 97535; 97542; 99285; A4606; A4615; A6449; C1725; J0360; J0665; J1100; J1171; J1200; J1308; J1650; J1815; J2003; J2004; J2250; J2405; J2470; J2543; J2704; J3010; J3373; J3475; J3490; J7030; J7042; P9016; Q9967; J0131